=== PATIENT | male | born 1960 | race Caucasian/White ===

== ENCOUNTER 2016-12-03 02:04 | Emergency (ER) | payer BC ==
[~2016-12-03] VITALS: Ht 182.9 cm; Wt 170.0 kg
[~2016-12-03 02:04] MED LIST: ALBU8I INH; ASPI1TAB7; HYDR-3533 PO; IBUP600T26 PO; METF500 PO; METH750T2 PO; METO100T9 PO; PRED20 PO
[2016-12-03 02:18] VITALS: BP 172/81; PULSE 80; RESP 20; TEMP 98.2; O2SAT 98
--- NOTE | 2016-12-03 02:28 | PD ---
HPI Chief Complaint: Hypertension Time Seen by Provider: 02:26 Travel History International Travel<30 days: No Contact w/Intl Traveler<30days: No Traveled to known affect area: No History of Present Illness HPI 55-year-old male with history of hypertension, diabetes, pacemaker, presents to the ER today because he states his blood pressure was fairly high yesterday with both numbers and a triple digits, and he started having chest tightness which he currently rates at a 1 out of 10 starting this afternoon. He states he also has some dyspnea on exertion intermittently. He denies any nausea, vomiting, or any other symptoms. He states that he thinks his blood pressure was elevated and he took his metoprolol at 7:30 PM. He states that he skipped many of his medications for several weeks because he did not have the prescription filled. Modifying Factors: None Associated Signs & Symptoms: High blood pressure, chest tightness Risk Factors: History of hypertension, noncompliant with medications PFSH Past Medical History Hx Anticoagulant Therapy: No Heart Rhythm Problems: Yes ("LAZY HEART") Cardiovascular Problems: Yes High Cholesterol: Yes Congestive Heart Failure: Yes Diabetes: Yes Diminished Hearing: No Hypertension: Yes Pancreatitis: Yes Sleep Apnea: Yes Past Surgical History Cardiac Surgery: Yes (Pacemaker placed, cardiac cath) Oral Surgery: Yes (SEVERAL - clef lip and palate) Pacemaker: Yes (1984 AND 2005 demand pacer, unk mfgr) Social History Alcohol Use: No Tobacco Use: Yes (occ cigar) Substance Use: No Allergies-Medications (Allergen,Severity, Reaction): Coded Allergies: No Known Allergies (Verified , 12/03/16) Reported Meds & Prescriptions Reported Meds & Active Scripts Active Reported Aspirin 81 (Aspirin) 81 Mg Tabdr 81 Mg PO DAILY Pravastatin 40 Mg Tab 40 Mg PO HS Metoprolol Succinate ER 24 HR (Metoprolol Succinate) 50 Mg Tab 50 Mg PO HS Review of Systems Except as stated in HPI: all other systems reviewed are Neg Physical Exam Narrative GENERAL: Well-developed middle age white male patient currently in moderate distress. Awake and oriented 3. SKIN: Focused skin assessment warm/dry. HEAD: Atraumatic. Normocephalic. EYES: Pupils equal and round. No scleral icterus. No injection or drainage. ENT: No nasal bleeding or discharge. Mucous membranes pink and moist. NECK: Trachea midline. No JVD. CARDIOVASCULAR: Regular rate and rhythm. No murmur appreciated. RESPIRATORY: No accessory muscle use. Clear to auscultation. Breath sounds equal bilaterally. GASTROINTESTINAL: Abdomen soft, non-tender, nondistended. Hepatic and splenic margins not palpable. MUSCULOSKELETAL: No obvious deformities. No clubbing. No cyanosis. No edema. NEUROLOGICAL: Awake and alert. No obvious cranial nerve deficits. Motor grossly within normal limits. Normal speech. PSYCHIATRIC: Appropriate mood and affect; insight and judgment normal. Data Data Last Documented VS Vital Signs Date Time Temp Pulse Resp B/P Pulse Ox O2 Delivery O2 Flow Rate FiO2 12/03/16 03:27 75 16 124/62 96 Room Air 12/03/16 02:18 98.2 Orders Electrocardiogram (12/03/16 02:26) Ckmb (Isoenzyme) Profile (12/03/16 02:26) Complete Blood Count With Diff (12/03/16 02:26) Comprehensive Metabolic Panel (12/03/16 02:26) Magnesium (Mg) (12/03/16 02:26) Prothrombin Time / Inr (Pt) (12/03/16 02:26) Act Partial Throm Time (Ptt) (12/03/16 02:26) Troponin I (12/03/16 02:26) Chest, Single Ap (12/03/16 02:26) Ecg Monitoring (12/03/16 02:26) Bilateral Bp Monitoring (12/03/16 02:26) Iv Access Insert/Monitor (12/03/16 02:26) Oximetry (12/03/16 02:26) Oxygen Administration (12/03/16 02:26) Aspirin (Aspirin) (12/03/16 02:30) Nitroglycerin 2% Oint (Nitroglycerin 2% (12/03/16 02:30) Sodium Chloride 0.9% Flush (Ns Flush) (12/03/16 02:30) CKMB (12/03/16 02:35) CKMB% (12/03/16 02:35) Labs Laboratory Tests Test 12/03/16 02:35 White Blood Count 9.3 TH/MM3 Red Blood Count 4.90 MIL/MM3 Hemoglobin 14.7 GM/DL Hematocrit 43.8 % Mean Corpuscular Volume 89.4 FL Mean Corpuscular Hemoglobin 30.1 PG Mean Corpuscular Hemoglobin 33.6 % Concent Red Cell Distribution Width 12.9 % Platelet Count 230 TH/MM3 Mean Platelet Volume 8.9 FL Neutrophils (%) (Auto) 55.3 % Lymphocytes (%) (Auto) 36.3 % Monocytes (%) (Auto) 5.4 % Eosinophils (%) (Auto) 2.2 % Basophils (%) (Auto) 0.8 % Neutrophils # (Auto) 5.1 TH/MM3 Lymphocytes # (Auto) 3.4 TH/MM3 Monocytes # (Auto) 0.5 TH/MM3 Eosinophils # (Auto) 0.2 TH/MM3 Basophils # (Auto) 0.1 TH/MM3 CBC Comment DIFF FINAL Differential Comment Prothrombin Time 10.7 SEC Prothromb Time International 1.0 RATIO Ratio Activated Partial 25.9 SEC Thromboplast Time Sodium Level 136 MEQ/L Potassium Level 3.8 MEQ/L Chloride Level 102 MEQ/L Carbon Dioxide Level 24.1 MEQ/L Anion Gap 10 MEQ/L Blood Urea Nitrogen 20 MG/DL Creatinine 0.96 MG/DL Estimat Glomerular Filtration 81 ML/MIN Rate Random Glucose 252 MG/DL Calcium Level 8.6 MG/DL Magnesium Level 1.7 MG/DL Total Bilirubin 0.3 MG/DL Aspartate Amino Transf 20 U/L (AST/SGOT) Alanine Aminotransferase 37 U/L (ALT/SGPT) Alkaline Phosphatase 100 U/L Total Creatine Kinase 174 U/L Creatine Kinase MB 2.3 NG/ML Troponin I LESS THAN 0.02 NG/ML Total Protein 7.3 GM/DL Albumin 3.2 GM/DL MDM Medical Decision Making Medical Screen Exam Complete: Yes Emergency Medical Condition: Yes Medical Record Reviewed: Yes Interpretation(s) EKG shows normal sinus rhythm with frequent PVCs, rate currently at 77 bpm. No signs of acute ST-T elevations or depressions. Last 24 hours Impressions Chest X-Ray 12/03/16 0226 Signed Impressions: Service Date/Time: Saturday, December 03, 2016 02:48 - CONCLUSION: No acute disease. Sky Tamez MD Laboratory Tests Test 12/03/16 02:35 Blood Urea Nitrogen 20 MG/DL (7-18) Estimat Glomerular Filtration 81 ML/MIN (>89) Rate Random Glucose 252 MG/DL (74-106) Troponin I LESS THAN 0.02 NG/ML (0.02-0.05) Albumin 3.2 GM/DL (3.4-5.0) Differential Diagnosis High blood pressure, chest tightnesshypertensive urgency versus ACS versus dysrhythmias versus anxiety Narrative Course EKG did not show signs of changes and ST depressions or elevations. Cardiac enzymes negative. Patient had been given aspirin and nitroglycerin and his blood pressure came down nicely. Patient states his chest discomfort had gone away. He also states to me that he had a cardiac stress test done a year ago with Dr. Carlin and at this point, I have talked to the patient regarding findings and have offered to admit him to chest pain center for further evaluation of chest pain. 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 He does not want to stay, states he has to go to work. He should return for any worsening in chest pains, or new symptoms. He should take his medications on a consistent basis. At this point, patient also asked for refill of his diabetes medication. The plan was discussed with him and he states understanding. Diagnosis Primary Impression: Chronic hypertension Additional Impression: Medication refill Med/Other Pt SpecificInfo: Prescription(s) given Scripts Metformin 500 Mg Hpm174 Mg PO DAILY #30 TAB Ref 0 With a meal Prov:Sirena Watts MD 12/03/16 Metoprolol Succinate ER 24 HR 50 Mg Tab50 Mg PO HS #30 TAB Ref 0 Prov:Sirena Watts MD 12/03/16 Disposition: 01 DISCHARGE HOME Condition: Stable Sirena Watts MD Dec 03, 2016 02:28
[2016-12-03] MEDS ORDERED: ASPIRIN 325 MG TAB PO ONE (02:30)
[2016-12-03] MEDS ORDERED: NITROGLYCERIN 2% OINT 1 GM PACKET TOP ONE (02:30)
[2016-12-03] MEDS ORDERED: SODIUM CHLORIDE 0.9% FLUSH 10 ML FLUSH IVF PRN (02:30)
[2016-12-03 02:40] VITALS: BP 154/88; PULSE 74; RESP 16; O2SAT 98
[2016-12-03] MEDS ORDERED: METO50TA11 PO ×2 (02:50→03:59)
[2016-12-03] MEDS ORDERED: ASPI-110 PO (02:50)
[2016-12-03] MEDS ORDERED: PRAV40TA2 PO (02:50)
[2016-12-03 03:04] LABS: AUTOMATED NEUTROPHIL # 5.1 TH/MM3 (1.8-7.7); BASOPHIL # 0.1 TH/MM3 (0-0.2); BASOPHIL % 0.8 % (0.0-2.0); EOSINOPHIL # 0.2 TH/MM3 (0-0.4); EOSINOPHIL % 2.2 % (0.0-4.0); HEMATOCRIT 43.8 % (39.0-51.0); HEMO FLAGS DIFF FINAL; LYMPH % 36.3 % (9.0-44.0); LYMPHOCYTE # 3.4 TH/MM3 (1.0-4.8); MEAN CELL VOLUME 89.4 FL (80.0-100.0); MEAN CORPUSCULAR HEMOGLOBIN 30.1 PG (27.0-34.0); MEAN CORPUSCULAR HGB CONC 33.6 % (32.0-36.0); MONO % 5.4 % (0.0-8.0); NEUT % 55.3 % (16.0-70.0); PLATELET COUNT 230 TH/MM3 (150-450); RED CELL DISTRIBUTION WIDTH 12.9 % (11.6-17.2); WHITE BLOOD COUNT 9.3 TH/MM3 (4.0-11.0)
--- NOTE | 2016-12-03 03:17 | RADRPT ---
EXAM DATE/TIME: 12/03/2016 02:48 [facility] COMPARISON: CHEST SINGLE AP, September 01, 2015, 18:52. INDICATIONS : Chest pain. MEDICAL HISTORY : None. SURGICAL HISTORY : None. ENCOUNTER: Initial ACUITY: 1 day PAIN SCORE: 7/10 LOCATION: Bilateral chest FINDINGS: A single view of the chest demonstrates the lungs to be symmetrically aerated without evidence of mas s, infiltrate or effusion. The cardiomediastinal contours are unremarkable. A left subclavian trans venous pacer remains in place. Osseous structures are intact. CONCLUSION: No acute disease. Sky Tamez MD on December 03, 2016 at 3:15 Board Certified Radiologist. This report was verified electronically.
[2016-12-03 03:26] LABS: CHLORIDE 102 MEQ/L (98-107); POTASSIUM 3.8 MEQ/L (3.5-5.1); SODIUM (NA) 136 MEQ/L (136-145)
[2016-12-03 03:27] VITALS: BP 124/62; PULSE 75; RESP 16; O2SAT 96
[2016-12-03 03:30] LABS: ANION GAP 10 MEQ/L (5-15); BICARBONATE 24.1 MEQ/L (21.0-32.0); BLOOD UREA NITROGEN 20 MG/DL (7-18); MAGNESIUM 1.7 MG/DL (1.5-2.5)
[2016-12-03 03:33] LABS: ALT (GPT) 37 U/L (12-78); AST (GOT) 20 U/L (15-37); GLOMERULAR FILTRATION RATE 81 ML/MIN (>89)
[2016-12-03 03:34] LABS: TOTAL BILIRUBIN ADULT 0.3 MG/DL (0.2-1.0)
[2016-12-03 03:35] LABS: CREATINE KINASE 174 U/L (39-308)
[2016-12-03 03:36] LABS: ALKALINE PHOSPHATASE 100 U/L (45-117)
[2016-12-03 03:44] LABS: APTT (PATIENT) 25.9 SEC (24.3-30.1); PROTHROMBIN TIME - PATIENT 10.7 SEC (9.8-11.6)
[2016-12-03 03:48] LABS: CKMB 2.3 NG/ML (0.5-3.6)
[2016-12-03] MEDS ORDERED: METF500T PO (03:59)
--- NOTE | 2016-12-03 14:15 | EKG ---
Date Performed: 12/03/2016 Time Performed: 02:27:38 PTAGE: 55 years EKG: Sinus rhythm WITH FREQUENT VENTRICULAR PREMATURE COMPLEXES ABNORMAL RHYTHM ECG NO PREVIOUS TRACING DOCTOR: Romie Angeles Interpretating Date/Time 12/03/2016 14:12:08
== END 2016-12-03 04:26 | disposition home or self-care (01) ==
LOC: PHED 02:04
DX: I10 Essential (primary) hypertension (principal); R06.00 Dyspnea, unspecified; R94.31 Abnormal electrocardiogram [ECG] [EKG]; E11.9 Type 2 diabetes mellitus without complications; E78.00 Pure hypercholesterolemia, unspecified; G47.30 Sleep apnea, unspecified; Z76.0 Encounter for issue of repeat prescription; Z72.0 Tobacco use; Z79.899 Other long term (current) drug therapy; Z79.84 Long term (current) use of oral hypoglycemic drugs; Z86.79 Personal history of other diseases of the circulatory system; Z87.19 Personal history of other diseases of the digestive system
CPT/HCPCS: 71010; 80053; 82550; 82552; 83735; 84484; 85025; 85610; 85730; 93005; 99285